=== PATIENT | female | born 1980 | race Caucasian/White ===

== ENCOUNTER 2023-07-04 10:21 | Observation (INO) | payer BC ==
[2023-06-27 17:08] LABS: BASOPHILS # (AUTO) 0.1 X10'3 (0-0.2); BASOPHILS % (AUTO) 0.5 % (0-1); BILIRUBIN,URINE NEGATIVE (Neg); CLARITY,URINE CLOUDY (Clear); COLOR,URINE YELLOW (Yellow); EOSINOPHILS # (AUTO) 0.4 X10'3 (0-0.9); EOSINOPHILS % (AUTO) 3.6 % (0-6); GLUCOSE, URINE NEGATIVE (Neg); KETONES,URINE NEGATIVE (Neg); LEUKOCYTE ESTERASE ,URINE NEGATIVE (Neg); LYMPHOCYTES # (AUTO) 2.5 X10'3 (1.1-4.8); LYMPHOCYTES % (AUTO) 21.5 % (21-51); MEAN CORPUSCULAR HGB CONC 30.9 g/dL (33.0-36.5); MEAN CORPUSCULAR VOLUME 77.8 FL (78-98); MEAN PLATELET VOLUME 7.6 FL (7.4-10.4); MONOCYTES # (AUTO) 0.9 X10'3 (0-0.9); NEUTROPHILS # (AUTO) 7.7 X10'3 (1.8-7.7); NEUTROPHILS % (AUTO) 66.4 % (42-75); NITRITES, URINE NEGATIVE (Neg); OCCULT BLOOD,URINE MODERATE (Neg); PH,URINE 5.5 (4.8-8.0); PRE OP HEMATOCRIT 31.4 % (35.0-45.0); PRE OP PLATELET COUNT 582 X10'3 (140-440); PRE OP WHITE BLOOD COUNT 11.6 10'3 (4.8-10.8); PROTEIN,URINE NEGATIVE (Neg); RED BLOOD COUNT 4.03 X10'6 (4.20-5.60); RED CELL DISTRIBUTION WIDTH 16.8 % (11.5-14.5); UROBILINOGEN,URINE 0.2 E.U/dL (0.2-1.0)
[2023-06-27 17:11] LABS: UA COLLECTION TYPE CLN CATCH MIDSTREAM
[2023-06-27 17:21] LABS: ALBUMIN 3.6 G/DL (3.4-5.0); ALBUMIN/GLOBULIN RATIO 0.8 (1.1-1.5); ALKALINE PHOSPHATASE 105 IU/L (46-116); BLOOD UREA NITROGEN 17 MG/DL (7-18); BUN/CREATININE RATIO 29.8 (10.0-20.0); CALCIUM 9.5 MG/DL (8.5-10.1); CHLORIDE 101 MMOL/L (99-107); CREATININE 0.57 MG/DL (0.40-0.90); PRE OP ALT 33 U/L (30-65); PRE OP ANION GAP 6 (8-16); PRE OP AST 17 U/L (10-37); PRE OP BILIRUB, TOTAL 0.2 MG/DL (0.0-1.0); PRE OP GLUCOSE 101 MG/DL (70-104); PRE OP HEMOGLOBIN 9.7 g/dL (12.0-16.0); PRE OP POTASSIUM 3.9 MMOL/L (3.4-5.1); PRE OP SODIUM 136 MMOL/L (135-145); TOTAL CARBON DIOXIDE 28.8 MMOL/L (24-32); eGFR > 90 ML/MIN
[2023-06-27 17:24] LABS: HCG SERUM QL NEGATIVE
[2023-06-27 17:28] LABS: MUCUS STRANDS MANY /LPF (Neg); SQUAMOUS EPITHELIAL CELL,UR MANY /LPF (FEW)
[2023-06-27 17:29] LABS: BACTERIA,URINE 1+ /HPF (Neg); HYALINE CASTS 0-3 /LPF (NEGATIVE); RBC,URINE 0-2 /HPF (0-2); WBC,URINE 0-4 /HPF (0-4)
[~2023-07-04] VITALS: Ht 170.2 cm; Wt 76.1 kg
[2023-07-04] VITALS (11 sets, daily range): BP systolic 115–152; BP diastolic 62–97; PULSE 79–94; RESP 9–18; TEMP 98.1; O2SAT 93–100
[~2023-07-04 10:21] MED LIST: ACET-1008 PO; ALPR0.5T9 PO; FLUT1BLS11 INH; GENTAMICIN IV ONE; MEDR10TA10 PO; NORMAL SALINE IV ONE; OMEP20CA16 PO; clindamycin-Cleocin 900mg/D5W 50 ML IV ONE; famotidine 20mg tablet PO ONE; ringers solution, lacted 1,000 ML IV SCH
[2023-07-04] MEDS ORDERED: dexamethasone sod phosphate 10mg/ml inj ONE (14:19)
[2023-07-04] MEDS ORDERED: sevoflurane 250ml liquid IH ONE (14:19)
[2023-07-04] MEDS ORDERED: fentaNYL/PF 50MCG/1 ML 2ML syringe ONE (14:21)
[2023-07-04] MEDS ORDERED: midazolam 1 mg/ML 2ml injection ONE (14:21)
[2023-07-04] MEDS ORDERED: propofol inj 20 ML IV ONE (14:45)
[2023-07-04] MEDS ORDERED: ondansetron/PF 4mg/2ml inj ONE (14:45)
[2023-07-04] MEDS ORDERED: ondansetron/PF 4mg/2ml inj IV PRN ×3 (14:55→16:15)
[2023-07-04] MEDS ORDERED: ibuprofen 200mg tablet PO PRN (14:55)
[2023-07-04] MEDS ORDERED: dextrose 5%-lactated ringers 1,000 ML IV SCH (14:55)
[2023-07-04] MEDS ORDERED: HYDROcodone/acetaminophen 5mg/325mg tablet PO PRN ×2 (14:55)
--- NOTE | 2023-07-04 14:56 | NUR ---
Received from OR via neo , accompanied by Anesthesiologist Jesus and report given by Anesthesiolgist and Bindu RN. Pt sleepy but arousable. 10L SM. Shauna-pad with scant amout of dark red blood. Pt c/o of [place], administering anti-emetics per md. order. Will continue to monitor.
[2023-07-04] MEDS ORDERED: morphine 4 MG/ML inj SYRINge IV PRN (15:10)
[2023-07-04] MEDS ORDERED: proCHLORperazine 10 MG/2 ml inj IV PRN (15:10)
[2023-07-04] MEDS ORDERED: morphine 2 MG/ML inj. syringe IV PRN (15:10)
[2023-07-04] MEDS ORDERED: meperidine/PF 25mg/ml syringe IV PRN ×3 (15:10)
[2023-07-04] MEDS ORDERED: ringers solution, lacted 1,000 ML IV SCH (15:10)
[2023-07-04] MEDS ORDERED: ketorolac trometh. 30mg/ml inj. IV ONE (15:10)
[2023-07-04] MEDS ORDERED: scopolamine 1MG/72H patch 1 PATCH PATCH.TD.3 TD ONE (16:58)
--- NOTE | 2023-07-04 17:16 | NUR ---
Pt continuing to c/o of nausea. Scopolamine patch placed and instructions for removal given to patient. Patient verbalized understanding. Educated patient on dc instructions. Pt escorted via wheel chair and entered private vehicle without incident. All personal belongings with patient.
[2023-07-05] MEDS ORDERED: rivastigmine 4.6mg/24 hour transdermal patch TD SCH (08:00)
== END 2023-07-05 | disposition home or self-care (01) ==
LOC: PAS 10:21 → PAS IN 14:58
PROVIDERS: ADMIT Obstetrics & Gynecology Obstetrics; ATTEND Obstetrics & Gynecology Obstetrics
DX: N92.1 Excessive and frequent menstruation with irregular cycle (principal); N94.6 Dysmenorrhea, unspecified; J45.909 Unspecified asthma, uncomplicated; G47.30 Sleep apnea, unspecified; G43.909 Migraine, unspecified, not intractable, without status migrainosus; Z87.891 Personal history of nicotine dependence; Z79.899 Other long term (current) drug therapy
CPT/HCPCS: 36415; 58558; 71046; 80053; 81001; 82948; 84703; 85025; 86885; 86900; 86901; 93005; 96365; 96375; 96376; G0378; J0780; J1100; J1580; J2250; J2405; J2704; J3010; J3490; J7030; J7120; A4355; A4618; A6258; A7000